=== PATIENT | male | born 1980 | race Two or more races ===

== ENCOUNTER 2020-05-04 05:26 | Emergency (ER) | payer OTHER ==
[~2020-05-04] VITALS: Ht 170.2 cm; Wt 71.7 kg
[2020-05-04] MEDS ORDERED: LEVSIN/SL0.125 MG SL (08:45)
== END 2020-05-04 08:47 | disposition home or self-care (01) ==
LOC: ER 05:26
DX: R10.13 Epigastric pain (principal); R14.3 Flatulence

== ENCOUNTER → 2020-06-15 | Outpatient (CLI) | payer OTHER ==
[~2020-06-15] MED LIST: LEVSIN/SL0.125 MG SL
== END | disposition home or self-care (01) ==
LOC: SONOGRAMA 15:23
PROVIDERS: ATTEND Surgery
DX: N28.89 Other specified disorders of kidney and ureter (principal); R39.89 Other symptoms and signs involving the genitourinary system

== ENCOUNTER 2020-12-28 13:32 | Outpatient (CLI) | payer OTHER | END 2020-12-28 13:43 | disposition home or self-care (01) | LOC: RAD 13:32 | PROVIDERS: ATTEND Internal Medicine Geriatric Medicine | DX: R06.02 Shortness of breath (principal); I11.9 Hypertensive heart disease without heart failure ==

== ENCOUNTER 2021-07-02 07:06 | Outpatient (CLI) | payer OTHER | END 2021-07-02 07:18 | disposition home or self-care (01) | LOC: SONOGRAMA 07:06 | PROVIDERS: ATTEND Internal Medicine Geriatric Medicine | DX: K75.9 Inflammatory liver disease, unspecified (principal); K76.0 Fatty (change of) liver, not elsewhere classified ==